=== PATIENT | female | born 1990 | race Caucasian/White ===

== ENCOUNTER → 2017-05-04 | Outpatient (CLI) | payer BC ==
[2017-05-04 13:08] LABS: MEAN CELL VOLUME 93.8 fL (80-100); MEAN CORPUSCULAR HEMOGLOBIN 32.3 pg (25-34); MEAN CORPUSCULAR HGB CONC 34.4 g/dl (32-36); MEAN PLATELET VOLUME 10.2 fL (7.4-10.4); PLATELET COUNT 215 K/uL (130-400); RED BLOOD COUNT 3.84 M/uL (4.2-5.4); WHITE BLOOD COUNT 6.99 K/uL (4.8-10.8)
[2017-05-04 13:25] LABS: ESTIMATED AVERAGE GLUCOSE 91 mg/dl; HA1C FLAG Normal (Normal)
[2017-05-04 13:31] LABS: ALT/SGPT 19 U/L (12-78); AST/SGOT 16 U/L (15-37); BLOOD UREA NITROGEN 9 mg/dl (7-18); BUN/CREATININE RATIO 10.6 (10-20); CALCIUM 8.9 mg/dl (8.5-10.1); CARBON DIOXIDE 28 mmol/L (21-32); CHLORIDE 108 mmol/L (98-107); CREATININE 0.81 mg/dl (0.60-1.20); GLUCOSE 76 mg/dl (70-99); POTASSIUM 3.9 mmol/L (3.5-5.1); SODIUM 139 mmol/L (136-145)
[2017-05-04 13:34] LABS: ALB/GLOB RATIO 1.1 (0.9-2); ALKALINE PHOSPHATASE 47 U/L (45-117); CHOLESTEROL 128 mg/dl (0-200); CHOLESTEROL/HDL RATIO 2.1; HDL CHOLESTEROL 62 mg/dl; LDL CHOLESTEROL CALCULATED 58 mg/dl; TRIGLYCERIDES 41 mg/dl (0-150); VERY LOW DENSITY LIPOPROT CALC 8 mg/dl
== END | disposition home or self-care (01) ==
LOC: C.LAB1850 12:10
PROVIDERS: ATTEND Internal Medicine
DX: Z00.00 Encounter for general adult medical examination without abnormal findings (principal); Z13.1 Encounter for screening for diabetes mellitus; Z13.220 Encounter for screening for lipoid disorders

== ENCOUNTER → 2017-05-21 | Outpatient (CLI) | payer BC | END | disposition home or self-care (01) | LOC: C.PAPS 14:14 | PROVIDERS: ATTEND Obstetrics & Gynecology | DX: Z01.419 Encounter for gynecological examination (general) (routine) without abnormal findings (principal) ==

== ENCOUNTER → 2017-07-06 | Outpatient (CLI) | payer BC ==
[2017-07-06 11:34] LABS: MANUAL MICROSCOPIC REQUIRED? NO; URINE APPEARANCE CLEAR (CLEAR); URINE BILIRUBIN NEG (NEG); URINE COLOR YELLOW; URINE NITRITE NEG (NEG); URINE PH 6.5 (4.5-7.5); UROBILINOGEN NEG (NEG)
[2017-07-06 11:37] LABS: REVIEW REQ? NO
== END | disposition home or self-care (01) ==
LOC: C.LABSPEC 11:17
PROVIDERS: ATTEND Obstetrics & Gynecology
DX: Z34.01 Encounter for supervision of normal first pregnancy, first trimester (principal)

== ENCOUNTER → 2017-07-13 | Outpatient (CLI) | payer BC ==
[2017-07-13 16:36] LABS: BASO % 0.4 %; BASO ABS # 0.03 K/uL (0-0.2); COMPLETE YES; EOS % 0.4 %; IG% 0.1 %; LYMPH % 16.1 %; LYMPH ABS # 1.33 K/uL (1.2-3.4); MEAN CELL VOLUME 91.9 fL (80-100); MEAN CORPUSCULAR HEMOGLOBIN 32.7 pg (25-34); MEAN CORPUSCULAR HGB CONC 35.6 g/dl (32-36); MEAN PLATELET VOLUME 9.9 fL (7.4-10.4); MONO % 8.1 %; NEUT % 74.9 %; PLATELET COUNT 279 K/uL (130-400); WHITE BLOOD COUNT 8.27 K/uL (4.8-10.8)
[2017-07-16 01:52] LABS: CHLAMYDIA TRACH RNA*** NOT DETECTED (NOT DETECTED); GC (NEIS GONORRHOEAE)RNA** NOT DETECTED (NOT DETECTED)
== END | disposition home or self-care (01) ==
LOC: C.LAB1850 15:19
PROVIDERS: ATTEND Obstetrics & Gynecology
DX: Z34.01 Encounter for supervision of normal first pregnancy, first trimester (principal)

== ENCOUNTER → 2017-09-06 | Outpatient (CLI) | payer OTHER | END | disposition home or self-care (01) | LOC: C.LAB 17:21 | PROVIDERS: ATTEND Obstetrics & Gynecology | DX: Z34.02 Encounter for supervision of normal first pregnancy, second trimester (principal) ==

== ENCOUNTER 2017-10-19 08:45 | Emergency (ER) | payer OTHER ==
[~2017-10-19] VITALS: Ht 152.4 cm; Wt 58.6 kg
[2017-10-19 08:49] VITALS: TEMP 36.7; Ht 152.4 cm; Wt 58.6 kg
[2017-10-19] MEDS ORDERED: SODIUM CHLORIDE 0.9% 1000ML 1,000 ML IV STA ×2 (09:19→12:26)
[2017-10-19] MEDS ORDERED: ONDANSETRON INJ 2 MG/ML 2 ML VIAL IV STA ×2 (09:19→12:26)
[2017-10-19] MEDS ORDERED: DOXY25TA8 PO (09:22)
[2017-10-19] MEDS ORDERED: PRENTAB26 PO (09:22)
[2017-10-19] MEDS ORDERED: PYRI100T4 PO (09:22)
--- NOTE | 2017-10-19 09:46 | EMERGENCY ROOM VISIT NOTE ---
History Report prepared by Tavon: Lauren Gunter Under the Supervision of: Dr. Lenore Beck M.D. First contact with patient: 09:01 Chief Complaint: DIARRHEA Stated Complaint: SEVERE DIARRHEA W/BLOOD & 22 WKS Nursing Triage Summary: pt reports bilat lower abd pain started at 0100 this am has blood in stool. fesl nauseated and vomiting . unsure if related to (Morning sickness). History of Present Illness The patient is a 26 year old female who presents to the Emergency Room with complaints of intermittent diarrhea for the past 8 hours. Last night she developed lower abdominal pain that she rates as a 6/10 - 10/10 in severity and describes as "achy." She then developed diarrhea. She states that she has had 20 + episodes of diarrhea throughout the morning. She is now just passing mucous and bloody stools. She reports bright red blood in her stools. She has been unable to keep fluids down. Last night she had yogurt from the [employer] and [place] food from [employer] for dinner. Her ate the same thing and has not been sick. The patient is and is currently 22 weeks . She has been experiencing some morning sickness with her and did have 1 episode of vomiting this morning. Pt had a brownish d/c earlier this week, but was told by OB it was ok. Pt feels baby moving and denies BRB vaginally or change in d/c. The patient denies any fevers, chest pain, shortness of breath, or urinary symptoms. She denies any recent sick contacts. She denies any personal history of IBS or other bowel problems. Source of History: patient Onset: 8 hours ADMISSIONS CLINICIAN Position: abdomen Symptom Intensity: 6/10-10/10 Quality: other (diarrhea) Timing: intermittent Associated Symptoms: + vomiting, + abdominal pain, + hematochezia, No fevers , No chest pain, No SOB, No urinary symptoms Note: Pt is 22 weeks . Review of Systems See HPI for pertinent positives & negatives. A total of 10 systems reviewed and were otherwise negative. Past Medical & Surgical Medical Problems: (1) 22 weeks gestation of Family History No pertinent history stated. Social History Smoking Status: Never Smoker Marital Status: Housing Status: lives with significant other Occupation Status: employed Current/Historical Medications Scheduled Multivit/Min/Iron/Fol Ac/Pren ( Vitamin), 1 TAB PO DAILY Ondasetron Odt (Zofran Odt), 4 MG SL Q6H Pyridoxine (Vitamin B6), 100 MG PO DAILY Scheduled PRN Dicyclomine Hcl (Bentyl), 10 MG PO Q6 PRN for cramping Doxylamine Succinate (Sleep) (Unisom), 25 MG PO UD PRN for Nausea Allergies Coded Allergies: No Known Allergies (Unverified , 10/19/17) Physical Exam Vital Signs Date Time Temp Pulse Resp B/P (MAP) Pulse Ox O2 Delivery O2 Flow Rate FiO2 10/19/17 14:06 80 17 118/78 100 Room Air 10/19/17 13:00 72 18 118/78 100 Room Air 10/19/17 11:13 80 17 115/71 100 Room Air 10/19/17 10:08 84 10/19/17 09:45 76 18 114/77 100 Room Air 10/19/17 08:49 36.7 89 18 117/81 100 Room Air Physical Exam Vital signs reviewed. General: Well-appearing 26 year old female, in no significant distress. HEENT: No scleral icterus, PERRLA, neck supple. Atraumatic. Cardiovascular: Regular rate and rhythm, no extra sounds. Pulmonary: Clear to auscultation bilaterally, normal work of breathing. Abdomen: Soft, gravid, nontender, nondistended, positive bowel sounds. Musculoskeletal: Atraumatic, no peripheral edema. Neurologic: Patient awake alert and oriented x 3 Skin: Warm, dry, no rash Medical Decision & Procedures Laboratory Results 10/19/17 09:50 Red Blood Count 3.69, Mean Corpuscular Volume 93.8, Mean Corpuscular Hemoglobin 32.8, Mean Corpuscular Hemoglobin Concent 35.0, Mean Platelet Volume 9.7, Neutrophils (%) (Auto) 90.2, Lymphocytes (%) (Auto) 3.5, Monocytes (%) (Auto) 5.6, Eosinophils (%) (Auto) 0.1, Basophils (%) (Auto) 0.1, Neutrophils # (Auto) 12.67, Lymphocytes # (Auto) 0.49, Monocytes # (Auto) 0.79, Eosinophils # (Auto) 0.01, Basophils # (Auto) 0.01 10/19/17 09:50 Test 10/19/17 09:50 10/19/17 10:50 White Blood Count 14.04 K/uL (4.8-10.8) Red Blood Count 3.69 M/uL (4.2-5.4) Hemoglobin 12.1 g/dL (12.0-16.0) Hematocrit 34.6 % (37-47) Mean Corpuscular Volume 93.8 fL (80-100) Mean Corpuscular Hemoglobin 32.8 pg (25-34) Mean Corpuscular Hemoglobin Concent 35.0 g/dl (32-36) Platelet Count 252 K/uL (130-400) Mean Platelet Volume 9.7 fL (7.4-10.4) Neutrophils (%) (Auto) 90.2 % Lymphocytes (%) (Auto) 3.5 % Monocytes (%) (Auto) 5.6 % Eosinophils (%) (Auto) 0.1 % Basophils (%) (Auto) 0.1 % Neutrophils # (Auto) 12.67 K/uL (1.4-6.5) Lymphocytes # (Auto) 0.49 K/uL (1.2-3.4) Monocytes # (Auto) 0.79 K/uL (0.11-0.59) Eosinophils # (Auto) 0.01 K/uL (0-0.5) Basophils # (Auto) 0.01 K/uL (0-0.2) RDW Standard Deviation 43.9 fL (36.4-46.3) RDW Coefficient of Variation 12.8 % (11.5-14.5) Immature Granulocyte % (Auto) 0.5 % Immature Granulocyte # (Auto) 0.07 K/uL (0.00-0.02) Anion Gap 8.0 mmol/L (3-11) Est Creatinine Clear Calc Drug Dose 109.2 ml/min Estimated GFR () 143.2 Estimated GFR (Non- 123.6 BUN/Creatinine Ratio 14.2 (10-20) Calcium Level 8.5 mg/dl (8.5-10.1) Magnesium Level 2.0 mg/dl (1.8-2.4) Total Bilirubin 0.4 mg/dl (0.2-1) Direct Bilirubin 0.1 mg/dl (0-0.2) Aspartate Amino Transf (AST/SGOT) 19 U/L (15-37) Alanine Aminotransferase (ALT/SGPT) 31 U/L (12-78) Alkaline Phosphatase 50 U/L (45-117) Total Protein 7.0 gm/dl (6.4-8.2) Albumin 3.0 gm/dl (3.4-5.0) Lipase 97 U/L (73-393) Urine Color YELLOW Urine Appearance CLEAR (CLEAR) Urine pH 6.5 (4.5-7.5) Urine Specific [place] 1.006 (1.000-1.030) Urine Protein NEG (NEG) Urine Glucose (UA) NEG (NEG) Urine Ketones TRACE (NEG) Urine Occult Blood NEG (NEG) Urine Nitrite NEG (NEG) Urine Bilirubin NEG (NEG) Urine Urobilinogen NEG (NEG) Urine Leukocyte Esterase TRACE (NEG) Urine WBC (Auto) 1-5 /hpf (0-5) Urine RBC (Auto) 0-4 /hpf (0-4) Urine Hyaline Casts (Auto) 1-5 /lpf (0-5) Urine Epithelial Cells (Auto) 20-30 /lpf (0-5) Urine Bacteria (Auto) 1+ (NEG) Laboratory results per my review. Medications Administered Medications (Trade) Dose Ordered Sig/Piotr Route Start Time Stop Time Status Last Admin Dose Admin Sodium Chloride 1,000 ml @ 999 mls/hr Q1H1M STAT IV 10/19/17 09:19 10/19/17 10:19 DC 10/19/17 09:48 999 MLS/HR Ondansetron HCl (Zofran Inj) 4 mg NOW STAT IV 10/19/17 09:19 10/19/17 09:25 DC 10/19/17 09:56 4 MG Dicyclomine HCl (Bentyl Cap) 10 mg NOW ONCE PO 10/19/17 12:30 10/19/17 12:31 DC 10/19/17 12:38 10 MG Ondansetron HCl (Zofran Inj) 4 mg NOW STAT IV 10/19/17 12:26 10/19/17 12:29 DC 10/19/17 12:38 4 MG Acetaminophen 650 mg/Empty Bag 65 ml @ 260 mls/hr NOW STAT IV 10/19/17 12:26 10/19/17 12:40 DC 10/19/17 12:52 260 MLS/HR Sodium Chloride 1,000 ml @ 150 mls/hr Q6H40M STAT IV 10/19/17 12:26 10/19/17 14:28 DC 10/19/17 12:38 150 MLS/HR ED Course 09: Past medical records reviewed. The patient was evaluated in room B5. A complete history and physical examination was performed. 0919: Zofran 4 mg IV, NSS 1000 ml @ 999 mls/hr IV 1224: I reassessed the patient and she is still complaining of symptoms. 1226: NSS 1000 ml @ 150 mls/hr IV, Acetaminophen 65 ml @ 260 mls/hr IV, Zofran 4 mg IV 1230: Bentyl 10 mg PO 1343: I reassessed the patient at this time. She is feeling better and resting comfortably. I discussed the results and treatment plan with the patient. I answered all pertaining questions that she had. She expressed understanding and verbalized agreement. The patient will be discharged home. Medical Decision Differential diagnoses includes viral illness, GI bleed, food borne illness, colitis, diverticulitis, C-diff, dehydration. This pt was evaluated and appeared to be in no distress. IV access was obtained and lab work was drawn. Pt was hydrated with NSS, given IV zofran. Lab work is significant for mild leukocytosis, likely d/t and stress reaction. Pt had no further vomiting or diarrhea in the ED. No stool sample was obtained. She c/o bowel cramping. FHT were 156. Pt felt much improved after IV acetaminophen, po bentyl and additional zofran. Pt was given a short Rx for bentyl and zofran. She was instructed on a clear liquid diet and advancing slowly as tolerated. Pt will f/u with OBGYN and return to the ED for worsening of symptoms or any medical concerns. Medication Reconcilliation Current Medication List: was personally reviewed by me Blood Pressure Screening Patient's blood pressure: Normal blood pressure Impression Primary Impression: Diarrhea Additional Impression: 22 weeks gestation of Scribe Attestation The scribe's documentation has been prepared under my direction and personally reviewed by me in its entirety. I confirm that the note above accurately reflects all work, treatment, procedures, and medical decision making performed by me. Departure Information Dispostion Home / Self-Care Prescriptions Ondasetron Odt (ZOFRAN ODT) 4 Mg Tab 4 MG SL Q6H for Nausea, #10 TAB Prov: Lenore Beck M.D. 10/19/17 Dicyclomine Hcl (BENTYL) 10 Mg Cap 10 MG PO Q6 Y for cramping, #20 CAP Prov: Lenore Beck M.D. 10/19/17 Referrals Massimo French M.D. (PCP) Tenisha Rubio M.D. Forms HOME CARE DOCUMENTATION FORM, IMPORTANT VISIT INFORMATION, WORK / SCHOOL INSTRUCTIONS Patient Instructions My [facility] Additional Instructions Diagnosis: Diarrhea Drink plenty of clear fluids. Advance your diet slowly as tolerated: BRAT diet. Bananas, rice, applesauce and toast. Bentyl 10 mg every 6 hours as needed for abdominal cramping. Tylenol 650 mg every 6 hours as needed for pain or fever. Zofran 4 mg every 6 hours as needed for nausea. Return to the ER for worsening of symptoms or any medical concerns. Problem Qualifiers
[2017-10-19 10:08] LABS: BASO % 0.1 %; BASO ABS # 0.01 K/uL (0-0.2); EOS % 0.1 %; EOS ABS # 0.01 K/uL (0-0.5); HEMATOCRIT 34.6 % (37-47); HEMOGLOBIN 12.1 g/dL (12.0-16.0); IG# 0.07 K/uL (0.00-0.02); LYMPH % 3.5 %; LYMPH ABS # 0.49 K/uL (1.2-3.4); MEAN CELL VOLUME 93.8 fL (80-100); MEAN CORPUSCULAR HEMOGLOBIN 32.8 pg (25-34); MEAN PLATELET VOLUME 9.7 fL (7.4-10.4); MONO % 5.6 %; MONO ABS # 0.79 K/uL (0.11-0.59); NEUT % 90.2 %; NEUT ABS # 12.67 K/uL (1.4-6.5); PLATELET COUNT 252 K/uL (130-400); RED CELL DISTRIBUTION WIDTH CV 12.8 % (11.5-14.5); RED CELL DISTRIBUTION WIDTH SD 43.9 fL (36.4-46.3); WHITE BLOOD COUNT 14.04 K/uL (4.8-10.8)
[2017-10-19 10:28] LABS: CALCIUM 8.5 mg/dl (8.5-10.1); CREATININE 0.62 mg/dl (0.60-1.20); POTASSIUM 3.6 mmol/L (3.5-5.1)
[2017-10-19] MEDS ORDERED: ACETAMINOPHEN IV 650 MG in EMPTY BAG 0 ML IV STA (12:26)
[2017-10-19] MEDS ORDERED: DICYCLOMINE HCL 10 MG CAP PO ONE (12:30)
[2017-10-19] MEDS ORDERED: DICY10CA55 PO (13:52)
[2017-10-19] MEDS ORDERED: ONDA4TAB10 SL (13:52)
[2017-10-19 14:06] VITALS: BP 118/78; PULSE 80; O2SAT 100
== END 2017-10-19 14:10 | disposition home or self-care (01) ==
LOC: C.EDB 08:46
DX: R19.7 Diarrhea, unspecified (principal); O26.892 Other specified pregnancy related conditions, second trimester; Z3A.22 22 weeks gestation of pregnancy; Z79.899 Other long term (current) drug therapy

== ENCOUNTER → 2017-12-02 | Outpatient (CLI) | payer OTHER ==
[~2017-12-02] MED LIST: DOXY25TA8 PO; ONDA4TAB10 SL; PRENTAB26 PO; PYRI100T4 PO
[2017-12-02 17:26] LABS: HEMATOCRIT 31.4 % (37-47); HEMOGLOBIN 10.8 g/dL (12.0-16.0)
== END | disposition home or self-care (01) ==
LOC: C.LAB1850 15:53
PROVIDERS: ATTEND Obstetrics & Gynecology
DX: Z34.03 Encounter for supervision of normal first pregnancy, third trimester (principal)

== ENCOUNTER → 2017-12-02 | Outpatient (CLI) | payer OTHER | END | disposition home or self-care (01) | LOC: C.LABSPEC 18:32 | PROVIDERS: ATTEND Obstetrics & Gynecology | DX: Z34.03 Encounter for supervision of normal first pregnancy, third trimester (principal) ==

== ENCOUNTER → 2018-03-15 | Outpatient (CLI) | payer BC | END | disposition home or self-care (01) | LOC: C.LABSPEC 15:46 | PROVIDERS: ATTEND Obstetrics & Gynecology | DX: L03.90 Cellulitis, unspecified (principal) ==

== ENCOUNTER 2021-02-01 07:13 | Inpatient (IN) ==
[2021-02-01] MEDS: LACTATED RINGER'S 1,000 ML IV PRN ×2 (07:40→10:44)
[2021-02-01] MEDS ORDERED: PENICILLIN G POTASSIUM 3 MU in DEXTROSE 5% 100 ML IV PRN (07:54)
[2021-02-01] MEDS ORDERED: OXYTOCIN 30 UNITS/500 ML BAG IV PRN ×2 (07:54→09:19)
[2021-02-01] MEDS ORDERED: PENICILLIN G POTASSIUM 6 MU in DEXTROSE 5% 250 ML IV STA (07:54)
--- NOTE | 2021-02-01 08:00 | History & Physical Report ---
Date of Service February 01, 2021 Assessment & Plan (1) Active labor at term: (2) Group beta Strep positive: admit, iv, labs. wants epidural. plan arom forebag after comfortable. fhts categ 1. patient aware Dr. Aleman assuming care this am. History of Present Illness Chief Complaint: labor and srom Primary Care Provider: HERIBERTO PCP 30yo at 38+wks with cc of leaking fluid 0600 today and regular contractions. She called this am and advised to come in. Breathing with ctx. Gross srom per nurse of clear to pink tinged fluid. +FM. PNC c/b 1. GBS Pos urine --trt in labor 2. Low lying placenta, resolved at 32wk u/s PNL rh pos, ri, gbs pos OBH: x 1 GYNH: nl paps, no stds Allergies Allergy/AdvReac Type Severity Reaction Status Date / Time No Known Allergies Allergy Verified 01/30/21 13:24 Home Medications Medication Instructions Recorded Confirmed Type prenat.vits,rony,[id number]-[id number]-ptbxv 1 tab PO DAILY 06/21/20 01/30/21 History doxylamine succinate 25 mg tablet 25 mg PO HS PRN tab 06/24/20 01/30/21 History pyridoxine (vitamin B6) 25 mg 25 mg PO BID 06/24/20 01/30/21 History tablet ondansetron HCl 4 mg tablet 4 mg PO Q8H PRN 30 Days #20 tab 07/01/20 01/30/21 Rx lansoprazole 15 mg capsule,delayed 15 mg PO DAILY #30 cap 12/19/20 01/30/21 Rx release Patient History Medical History (Updated 02/01/21 @ 07:59 by Tana Cooper MD, FACOG) Vaginal delivery Family History (Updated 06/21/20 @ 15:51 by Eileen Reyes) Grandfather (Paternal) Diabetes Social History (Updated 06/24/20 @ 13:27 by Eileen Reyes) Smoking Status: Never smoker Preferred Language: Mauritian marital status: marital status details: Wily (30) [phone] Current Living Situation: Spouse Current Living Situation Comment: lvies with spouse, son, 1 cat. spouse to change litter. 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 palpable forebag) OB Exam Monitor Tracing: + external FHT monitor used (125 mod variability), + external uterine monitor used (q2-3), + category I and + normal FHT variability Results & Data ([facility]) Vital Signs (Past 12 Hours) Vital Signs Temp Pulse Resp BP 02/01/ 07:19 98.1 F 73 20 131/88 Coding Level of Care Code None Diagnoses Active labor at term Group beta Strep positive B95.1
--- NOTE | 2021-02-01 08:11 | Anesthesiology Consultation ---
Date of Service February 01, 2021 Assessment & Plan (1) Encounter for pre-operative examination: Chart Review Chart Review: Acceptable Risk for Labor Epidural History Height/Weight Height: 5 ft 3 in Weight: 67.585 kg Allergies Allergy/AdvReac Type Severity Reaction Status Date / Time No Known Allergies Allergy Verified 01/30/21 13:24 Medications Home Medications Medication Instructions Recorded Confirmed Last Taken prenat.vits,rony,[id number] 1 tab PO DAILY 06/21/20 01/30/21 Unknown doxylamine succinate 25 mg tablet 25 mg PO HS PRN tab 06/24/20 01/30/21 Unknown pyridoxine (vitamin B6) 25 mg 25 mg PO BID 06/24/20 01/30/21 Unknown tablet ondansetron HCl 4 mg tablet 4 mg PO Q8H PRN 30 Days #20 tab 07/01/20 01/30/21 Unknown lansoprazole 15 mg capsule,delayed 15 mg PO DAILY #30 cap 12/19/20 01/30/21 Unknown release Active Medications Generic Name Dose Route Start Last Admin Trade Name Freq PRN Reason Stop Dose Admin Lactated Ringer's 1,000 mls @ 125 mls/hr 02/01/21 07:54 02/01/21 07:40 Lr IV 02/03/21 07:53 999 mls/hr .Q8H PRN Administration L&D Protocol Protocol Past Medical History Medical History (Updated 02/01/21 @ 08:14 by Francisco Anderson MD) Vaginal delivery Past Family History Family History Grandfather (Paternal) Diabetes Past Surgical History Surgical History (Updated 02/01/21 @ 08:13 by Francisco Anderson MD) No significant past surgical history Social History Smoking Status: Never smoker Hx Alcohol Use: No Hx Substance Use: No substance use type: does not use Physical Exam Vital Signs Last Vital Signs Temp 36.7 C 02/01/21 07:47 Pulse 73 02/01/21 07:19 Resp 20 02/01/21 07:47 BP 131/88 02/01/21 07:19
[2021-02-01] MEDS ORDERED: ePHEDrine sulfate 50 MG/ML AMP ONE (08:22)
[2021-02-01] MEDS ORDERED: BUPIVACAINE 0.25% 30 ML VIAL ONE (08:22)
[2021-02-01] MEDS ORDERED: SODIUM CHLORIDE 0.9% INJ 10 ML VIAL ONE (08:22)
[2021-02-01] MEDS ORDERED: fentaNYL 2MCG/ML ROPIVACAINE 1.25MG/ML 100 ML BAG EPI ONE (08:23)
[2021-02-01] MEDS ORDERED: fentaNYL citrate 100 MCG/2 ML VIAL ONE (08:23)
[2021-02-01 08:27] LABS: Hematocrit (blood only) 31.6 % (37-47); Hemoglobin 10.8 g/dL (12.0-16.0); Mean Corpuscular Hemoglobin 30.9 pg (25-34); Mean Corpuscular Hgb Conc 34.2 g/dL (32-36); Mean Corpuscular Volume 90.3 fL (80-100); Mean Platelet Volume 11.1 fL (7.4-10.4); Platelet Count 225 K/uL (130-400); RDW Coefficient of Variation 13.3 % (11.5-14.5); RDW Standard Deviation 43.2 fL (36.4-46.3)
[2021-02-01] MEDS ORDERED: NALOXONE HCL 0.4 MG/1 ML VIAL/CARP IV PRN (08:45)
[2021-02-01] MEDS ORDERED: ONDANSETRON INJ 2 MG/ML 2 ML VIAL IV PRN (08:45)
[2021-02-01] MEDS ORDERED: ePHEDrine sulfate 50 MG/ML AMP IV PRN (08:45)
[2021-02-01] MEDS ORDERED: NALOXONE HCL 1 MG in SODIUM CHLORIDE 0.9% 1000ML 1,000 ML IV PRN (08:45)
[2021-02-01] MEDS ORDERED: fentaNYL 2MCG/ML ROPIVACAINE 1.25MG/ML 100 ML BAG EPI PRN (08:45)
--- NOTE | 2021-02-01 14:03 | Delivery Summary ---
Vaginal Delivery Summary Date of Service February 01, 2021 Vaginal Delivery Summary DIAGNOSES: 1. Staley intrauterine at 38w6d gestation. 2. Spontaneous onset of labor. 3. Group B Streptococcus Pos. PROCEDURE: Spontaneous vaginal delivery and repair of second degree laceration. SURGEON: Gloria Aleman MD. CUTTING TORCH OPERATOR: None. ESTIMATED BLOOD LOSS: 350 mL. COMPLICATIONS: None. PLACENTA: Spontaneous and intact with a 3-vessel cord. DISPOSITION: Stable to labor and delivery. DESCRIPTION: The patient pushed well and brought the head to in DOA position. The 's head was allowed to deliver with contraction force and no further active pushing, with the perineum protected during this time. The shoulders delivered easily with a maternal pushing effort. There was no nuchal cord. The right shoulder was anterior and the left arm presented compound alongside the head, causing a perineal laceration. The shoulders and body delivered without any difficulty, and the was placed on the maternal abdomen. It was vigorous and moving all extremities, and making respiratory efforts. The cord was doubly clamped by the MD and then cut by the FOB. The placenta delivered spontaneously and was noted to be intact and with a 3VC. The cervix, vagina and perineum were examined and were found to have a second degree laceration which was repaired using vicryl suture in the usual manner, including a crown suture to rebuild the perineal body, and a rectal exam was performed after repair revealing no suture or injury to the anorectal area. The fundus was firm and lochia minimal immediately after delivery. [facility] Vaginal Delivery Charge Vaginal Delivery Codes: 08277 global code for the antepartum, delivery, and post-
[2021-02-01] MEDS ORDERED: SUPERCREAM 0.870% 15 GM JAR EXT PRN (14:43)
[2021-02-01] MEDS ORDERED: oxyCODONE/ACETAMINOPHEN 5mg/325mg TAB PO PRN (14:43)
[2021-02-01] MEDS ORDERED: DIPHTHERIA/TETANUS/PERTUSSIS 0.5 ML SYR/VIAL IM ONE (14:43)
[2021-02-01] MEDS ORDERED: HYDROCORTISONE ACETATE 25 MG SUPP PR PRN (14:43)
[2021-02-01] MEDS ORDERED: BENZOCAINE 20% AER SPR 82.5 GM CAN EXT PRN (14:43)
--- NOTE | 2021-02-01 15:15 | Anesthesia Procedure Note ---
Date of Service February 01, 2021 Anesthesia Post Epidural Note Vital Signs Vital Signs: Temp Pulse Resp BP Pulse Ox 36.9 C 100 H 20 133/67 94 02/01/21 11:13 02/01/21 15:09 02/01/21 12:35 02/01/21 15:09 02/01/21 13:43 Notes Mental Status: alert / awake / arousable and participated in evaluation Nausea / Vomiting: adequately controlled Pain: adequately controlled Airway Patency, RR, SpO2: stable & adequate BP & HR: stable & adequate Hydration State: stable & adequate Neuraxial Anesthesia: was administered and sensory block is resolving Anesthetic Complications: no major complications apparent Epidural: Removed without complications and With tip intact
[2021-02-01] MEDS: IBUPROFEN 600 MG TAB PO PRN ×2 (16:45→21:53)
[2021-02-01] MEDS: ACETAMINOPHEN 325 MG TAB PO PRN (19:20)
[2021-02-01] MEDS: DOCUSATE SODIUM 100 MG CAP PO SCH (19:20)
[2021-02-02] MEDS: ACETAMINOPHEN 325 MG TAB PO PRN (01:04)
[2021-02-02] MEDS: IBUPROFEN 600 MG TAB PO PRN ×3 (01:57→12:26)
[2021-02-02 06:06] LABS: Hematocrit (blood only) 30.6 % (37-47); Hemoglobin 10.1 g/dL (12.0-16.0); Mean Corpuscular Hemoglobin 30.6 pg (25-34); Mean Corpuscular Volume 92.7 fL (80-100); Mean Platelet Volume 11.1 fL (7.4-10.4); Platelet Count 233 K/uL (130-400); RDW Coefficient of Variation 13.5 % (11.5-14.5); RDW Standard Deviation 46.2 fL (36.4-46.3); White Blood Count 13.78 K/uL (4.8-10.8)
[2021-02-02] MEDS ORDERED: PRENATAL VITAMIN 1 TAB PO SCH (08:00)
[2021-02-02] MEDS: DOCUSATE SODIUM 100 MG CAP PO SCH (09:00)
== END 2021-02-02 14:50 | disposition home or self-care (01) | DRG 807 ==
LOC: OPB 07:13 → 4S1 07:17 → 4S2 17:29